=== PATIENT | male | born 1970 | race American Indian/Alaskan Native ===

== ENCOUNTER 2018-07-19 23:17 | Emergency (ER) | payer OTHER ==
[2018-07-19] MEDS ORDERED: Oxycodone/Acetaminophen 5/325 mg Tab PO STA (23:35)
--- NOTE | 2018-07-19 23:38 | ED PDOC ---
Lower Extremity Pain/Injury Time Seen by Provider: 07/19/18 23:36 Chief Complaint (Nursing): Lower Extremity Problem/Injury Chief Complaint (Provider): right foot pain History Per: Patient (48 y/o male h/o HTN h/o Gout here with right foot pain similar to h/o gout. Notes pain began suddenly earlier today but not improved with Advil.) Past Medical History Reviewed: Historical Data, Nursing Documentation, Vital Signs Vital Signs: Last Vital Signs Temp 98.2 F 07/19/18 23:20 Pulse 96 H 07/19/18 23:20 Resp 18 07/19/18 23:20 BP 198/108 H 07/19/18 23:20 Pulse Ox 99 07/19/18 23:20 - Medical History PMH: HTN - Family History Family History: States: No Known Family Hx - Home Medications Home Medications: Ambulatory Orders Medication Instructions Recorded predniSONE [predniSONE Tab] 2 tab PO DAILY #8 tab 07/19/18 Indomethacin 50 mg PO TID PRN #21 capsule 07/20/18 - Allergies Allergies/Adverse Reactions: Allergies Allergy/AdvReac Type Severity Reaction Status Date / Time No Known Allergies Allergy Verified 07/19/18 23:20 Review of Systems ROS Statement: Except As Marked, All Systems Reviewed And Found Negative Musculoskeletal: Positive for: Foot Pain Physical Exam - Reviewed Nursing Documentation Reviewed: Yes Vital Signs Reviewed: Yes - Physical Exam Appears: Positive for: Well, Non-toxic, No Acute Distress Head Exam: Positive for: ATRAUMATIC, NORMAL INSPECTION, NORMOCEPHALIC Skin: Positive for: Normal Color, Warm, DRY Eye Exam: Positive for: EOMI, Normal appearance, PERRL ENT: Positive for: Normal ENT Inspection Neck: Positive for: Normal, Painless ROM Cardiovascular/Chest: Positive for: Regular Rate, Rhythm Respiratory: Positive for: CNT, Normal Breath Sounds Gastrointestinal/Abdominal: Positive for: Normal Exam, Soft Back: Positive for: Normal Inspection Extremity: Positive for: Normal ROM, Tenderness (between 2nd and 3rd toe right foot. No signs of erythema/swelling.) Neurologic/Psych: Positive for: Alert, Oriented - ECG O2 Sat by Pulse Oximetry: 99 - Progress ED Course And Treament: Percocet 5/325 mg x 2 dose Prednisone 60mg x 1 dose repeat BP 172/109 Disposition - Clinical Impression Clinical Impression: Gout attack - Patient ED Disposition Is Patient to be Admitted: No - Disposition Disposition: Routine/Home Disposition Time: 00:09 Condition: FAIR Prescriptions: Indomethacin 50 mg PO TID PRN #21 capsule PRN Reason: Pain, Moderate (4-7) predniSONE [predniSONE Tab] 2 tab PO DAILY #8 tab Instructions: Gout (DC), Lifestyle Changes to Manage Gout Forms: [facility] ED School/Work Excuse
[2018-07-20 00:08] VITALS: BP 172/109; RESP 20; TEMP 99.1
[2018-07-20 00:29] VITALS: PULSE 20; O2SAT 98
== END 2018-07-20 00:25 | disposition home or self-care (01) ==
LOC: H.ER 23:17
DX: M10.9 Gout, unspecified (principal); I10 Essential (primary) hypertension